=== PATIENT | female | born 1935 | race Hispanic/Latino ===

== ENCOUNTER → 2018-07-25 | Outpatient (CLI) | payer OTHER | END | disposition home or self-care (01) | LOC: SHCH 11:53 | PROVIDERS: ATTEND Internal Medicine Cardiovascular Disease | DX: I07.1 Rheumatic tricuspid insufficiency (principal); R94.31 Abnormal electrocardiogram [ECG] [EKG] | CPT/HCPCS: 93306 ==

== ENCOUNTER 2024-05-26 09:41 | Emergency (ER) | payer OTHER ==
[~2024-05-26] VITALS: Ht 147.3 cm; Wt 44.5 kg
[~2024-05-26 09:41] MED LIST: AEC81 PO; ALEN70TA80 PO; AMLO-142 PO; GLIP5TAB15 PO; HYDR12.54 PO; METF-444 PO; ROSU5TAB51 PO
--- NOTE | 2024-05-26 12:17 | HMCIMG ---
HIP UNILAT 2-3VW LEFT HISTORY: Status post fall COMPARISON: None TECHNIQUE: 3 images of left hip were obtained. 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 There is no acute displaced fracture or dislocation. Degenerative changes are seen. IMPRESSION: 1. Findings as described above.
--- NOTE | 2024-05-26 12:25 | ERN ---
General Chief Complaint: Lower Extremity Pain/Injury Stated Complaint: THIGH PAIN Time Seen by MD: 09:46 Source: patient History of Present Illness Initial Comments Patient is a an 88-year-old female coming in to be evaluated for left hip pain. Patient states he was sitting on her couch he slipped off landing on her left hip. States it was discomfort on movement but she is able to move it. No deformity noted. Allergies: Coded Allergies: No Known Allergies (Unverified Allergy, Unknown, 01/30/24) Home Meds Reported Medications Amlodipine Besylate/Benazepril (Amlodipine-Benazepril 10-40 mg) 10 Mg-40 Mg Capsule, 1 CAP PO DAILY for 30 Days, #30 CAP 0 Refills 01/30/24 Alendronate Sodium (Alendronate Sodium) 70 Mg Tablet, 70 MG PO QWEEK, TAB 01/30/24 Glipizide (Glipizide) 5 Mg Tablet, 1 TAB PO DAILY for 30 Days, #30 TAB 0 Refills 01/30/24 Hydrochlorothiazide (Hydrochlorothiazide) 12.5 Mg Tablet, 1 TAB PO DAILY for 30 Days, #30 TAB 0 Refills 01/30/24 Aspirin (ASPIRIN 81 MG ECTAB) 81 Mg Ectab, 81 MG PO DAILY, TAB.EC 01/30/24 Metformin HCl (Metformin HCl) 500 Mg Tablet, 1 TAB PO BID for 30 Days, #60 TAB 0 Refills 01/30/24 Rosuvastatin Calcium (Rosuvastatin Calcium) 5 Mg Tablet, 5 MG PO DAILY, TAB 01/30/24 Past Medical History Past Medical History: Diabetes-Type II, High Cholesterol, Hypertension Past Surgical History: Other Surgical History Other: HIP, ANKLE, SHOULDER Female( History) History: Not Applicable ROS Dictation CONSTITUTIONAL: No chills, no fever, no weakness, no diaphoresis, no malaise. HEAD/FACE: No signs of trauma. EENT: No eye pain, no blurred vision, no tearing, no double vision, no ear pain, no ear discharge, no nose pain, no nasal congestion, no throat pain, no t hroat swelling, no mouth pain. RESPIRATORY: No cough, no orthopnea, no SOB, no stridor, no wheezing. CARDIOVASCULAR: No chest pain, no edema, no palpitations, no syncope. GASTROINTESTINAL/ABDOMINAL: No abdominal pain, no constipation, no diarrhea, n o nausea, no vomiting. GENITOURINARY: No abnormal discharge, no dysuria, no frequent urination, no hematuria. No complaints of pain in the genitals. MUSCULOSKELETAL: No back pain, no gout, joint pain, no joint swelling, no muscle pain, no muscle stiffness, no neck pain. INTEGUMENTARY: No change in color, no change in hair/nails, no dryness, no lesion, no lumps, no rash. NEUROLOGICAL/PSYCH: No anxiety, not depressed, no emotional problem, no headache, no numbness, no pre-existing deficit, no history of seizures, no tremors, no weakness. HEMATOLOGIC/LYMPHATIC: Not anemic, no history of blood clots, no apparent bleeding, no bruising, glands not swollen. All Systems Negative, Except as Noted. Physical Exam Physical Exam Dictation VITAL SIGNS: Reviewed. GENERAL APPEARANCE: Alert, oriented x3, no acute distress, obese. HEAD AND FACE: Non-traumatic. EYES: PERRL, pink conjunctivas, eyelid no trauma, anterior chamber clear. EARS: Pinnas intact and no signs of trauma or erythema. Ear canals clear and no discharge. TMs no erythema. NOSE: No discharge, no bleeding. OROPHARYNX: Mouth normal, teeth no caries, tongue pink. Pharynx clear, no erythema. Tonsils no exudates, no abscesses noted. Mucous membrane moist. NECK: Supple, non-tender, no thyromegaly, no masses, no JVD, no bruits. BREAST: Deferred. CHEST: No tenderness, no crepitus, no paradoxical movement, no retractions. LUNGS: Clear, well-ventilated, symmetric, no rales, no wheezing, no rhonchi, no stridor, good breath sounds bilaterally. HEART: Regular rate, regular rhythm, no murmur, no gallops. VASCULAR: No peripheral edema. ABDOMEN: Soft, positive bowel sounds, nondistended, no guarding, nontender, no rebound, no masses no hepatomegaly, no splenomegaly, no Tadeo's sign, no hernias. RECTAL: Deferred. GENITAL: Deferred. NEUROLOGICAL: Normal speech, gross motor function intact, gross sensory function intact. MUSCULOSKELETAL: Neck nontender, full range of motion, back nontender, full range of motion. EXTREMITIES: Nontender, full range of motion. Left hip pain on palpation, no deformity, patient is able to move with some discomfort. SKIN: Color pink, dry, no turgor, no rash, no lacerations, no abrasions, no contusions. LYMPHATICS: Deferred. Results Laboratory and Microbiology Labs Reviewed?: Yes EKG/XRAY/US/CT/MRI X-RAY Comment [facility] [address] [place], [place] [id number] IMAGING REPORT Signed PATIENT: HEATHER NELSON MR#: [id number] : 1935 SEX: F AGE: 88 LOCATION: [facility] ORDER 1 STATUS: REG ER REPORT#: [id number] SERVICE 0 REASON: fall ORDERING PHYSICIAN: DAYANA CAMERON MD PROCEDURE: HIP U 2V L - HIP UNILAT 2-3VW LEFT HIP UNILAT 2-3VW LEFT HISTORY: Status post fall COMPARISON: None TECHNIQUE: 3 images of left hip were obtained. 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 There is no acute displaced fracture or dislocation. Degenerative changes are seen. IMPRESSION: 1. Findings as described above. DICTATED BY: CHRISTOPHE BAHENA MD DATE: 05/26/241212 ELECTRONICALLY SIGNED BY: CHRISTOPHE BAHENA MD DATE: 05/26/241216 [facility] MDM: Differential diagnosis: Fall, hip contusion, hip strain, Patient is a an 88-year-old female coming in to be evaluated for left foot. Patient she fell off her couch landing on left foot. No fracture noted at an x- ray patient will be discharged in stable condition with a diagnosis of strained hip contusion....... ED Course Orders Procedure Category Date Status Time Hip Unilat 2-3vw Left RAD 05/26/24 Resulted 09:51 Lidocaine (Lidocaine PHA 05/26/24 Verified Patch 4%) 12:30 Vital Signs Date Time Temp Pulse Resp B/P (MAP) Pulse Ox O2 Delivery O2 Flow Rate FiO2 05/26/24 09:45 99.0 106 16 136/66 Room Air 05/26/24 09:45 99.0 106 16 136/66 98 Room Air* 0 21 DX & DISP Disposition: Discharge Departure Impression: Primary Impression: Hip strain Additional Impression: Contusion, hip Condition: Stable Additional Instructions: FOLLOW-UP WITH PRIMARY CARE PROVIDER IN 1 TO 2 DAYS. TAKE MEDICATIONS DIRE CTED HERE IN THE EMERGENCY ROOM. OKAY TO CONTINUE HOME MEDICATIONS UNLESS OTHERWISE DISCUSSED DURING YOUR VISIT IN THE EMERGENCY ROOM TODAY. RETURN TO YOUR NEAREST EMERGENCY ROOM IF SYMPTOMS WORSEN OR IF THERE IS NO IMPROVEMENT. CALL 911 IF YOU NEED IMMEDIATE ASSISTANCE. TAKE TYLENOL [id number] NEEDED AND IF NO CONTRAINDICATIONS ARE PRESENT. INCREASE ORAL HYDRATION. A WOUND CULTURE OR URINE CULTURE WAS ORDERED HERE IN THE EMERGENCY ROOM DEPARTMENT PLEASE FOLLOW-UP WITH PRIMARY CARE PROVIDER AND ADVISE THEM TO GET REPEAT PORTS FROM OUR FACILITY. IF YOU HAD ANY DEEPA WRAP/SPLINTS THAT WERE APPLIED HERE, PLEASE DO NOT REMOVE THEM UNTIL YOU SEE YOUR PRIMARY CARE OR SPECIALTY. Referrals: Referrals: ADELIA GIBBONS MD (PCP) Time of Disposition: 12:27 DAYANA CAMERON MD May 26, 2024 12:25
[2024-05-26] MEDS: LIDOCAINE 4% ADH..PATCH TP ONE (13:54)
[2024-05-26 13:55] VITALS: BP 134/68; PULSE 97; RESP 16; TEMP 98.7; O2SAT 97
== END 2024-05-26 13:59 | disposition home or self-care (01) ==
LOC: EDH 09:41
DX: S76.012A Strain of muscle, fascia and tendon of left hip, initial encounter (principal); E11.9 Type 2 diabetes mellitus without complications; E78.00 Pure hypercholesterolemia, unspecified; I10 Essential (primary) hypertension; Z79.82 Long term (current) use of aspirin; Z79.84 Long term (current) use of oral hypoglycemic drugs; Z79.899 Other long term (current) drug therapy; W01.0XXA Fall on same level from slipping, tripping and stumbling without subsequent striking against object, initial encounter; Y93.89 Activity, other specified; Y92.89 Other specified places as the place of occurrence of the external cause; Y99.8 Other external cause status
CPT/HCPCS: 73502; 99283